=== PATIENT | male | born 1985 | race Caucasian/White ===

== ENCOUNTER 2017-04-17 12:57 | Inpatient (IN) | payer OTHER ==
[2017-04-17 14:36] VITALS: BMI 23.6
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
[2017-04-17] MEDS ORDERED: METHADONE HCL 10 MG TABLET (FOR DETOX USE ONLY) PO ONE ×2 (17:08→23:00)
[2017-04-17] MEDS ORDERED: MAGNESIUM HYDROX 2400MG/30ML ORAL SUSPENSION 30 ML CUP PO PRN (17:08)
[2017-04-17] MEDS ORDERED: guaiFENesin/D-METHORPHAN HB 10 ML UNIT-DOSE CUPS PO PRN (17:08)
[2017-04-17] MEDS ORDERED: P-EPHED 60MG/TRIPROLIDI 2.5MG TABLET PO PRN (17:08)
[2017-04-17] MEDS ORDERED: LOPERAMIDE HCL 2 MG CAPSULE PO PRN (17:08)
[2017-04-17] MEDS ORDERED: MAG HYDROX/AL HYDROX/SIMETH 30 ML UNIT-DOSE CUP PO PRN (17:08)
[2017-04-17] MEDS ORDERED: NICOTINE POLACRILEX 2 MG GUM BUC PRN (17:08)
[2017-04-17] MEDS ORDERED: MENTHOL/PHENOL 1 EACH UD MM PRN (17:08)
[2017-04-17] MEDS ORDERED: IBUPROFEN 400 MG TABLET (FP) PO PRN (17:08)
[2017-04-17] MEDS ORDERED: MAGNESIUM CITRATE 300 ML BOTTLE PO PRN (17:08)
[2017-04-17] MEDS ORDERED: LIDOCAINE VISCOUS 2% ORAL/TOP 20 ML UNIT-DOSE CUP MM PRN (17:10)
[2017-04-17] MEDS ORDERED: METHADONE HCL 10 MG TABLET (FOR DETOX USE ONLY) ONE (19:25)
[2017-04-17] MEDS: AMOX TR/POT CLAV 875MG/125MG TABLETS (FP) PO SCH (19:29)
[2017-04-17] MEDS: diazePAM 5 MG TABLET PO PRN (19:31)
[2017-04-17] MEDS: NICOTINE 14 MG/24 HOURS TOPICAL PATCH TD SCH (19:32)
[2017-04-17] MEDS: THIAMINE HCL 100 MG TABLET (FP) PO SCH (22:38)
[2017-04-17] MEDS: diphenhydrAMINE HCL 50 MG CAPSULE PO PRN (22:39)
[2017-04-18] MEDS: diazePAM 5 MG TABLET PO PRN ×4 (06:00→22:18)
[2017-04-18] MEDS: ACETAMINOPHEN 325 MG TABLET (FP) PO PRN (06:00)
[2017-04-18] MEDS: AMOX TR/POT CLAV 875MG/125MG TABLETS (FP) PO SCH ×2 (08:18→17:16)
[2017-04-18] MEDS ORDERED: METHADONE HCL 10 MG TABLET (FOR DETOX USE ONLY) PO ONE (10:00)
[2017-04-18] MEDS: NICOTINE 14 MG/24 HOURS TOPICAL PATCH TD SCH (10:45)
[2017-04-18] MEDS: PRENATAL VITAMINS W/ FOLIC ACID TABLET (FP) PO SCH (10:45)
--- NOTE | 2017-04-18 10:59 | EKG ---
Test Reason : Blood Pressure : / mmHG Vent. Rate : 079 BPM Atrial Rate : 079 BPM P-R Int : 138 ms QRS Dur : 088 ms QT Int : 418 ms P-R-T Axes : 064 002 026 degrees QTc Int : 479 ms NORMAL SINUS RHYTHM NORMAL ECG BORDERLINE QT INTERVAL NO PREVIOUS ECGS AVAILABLE Confirmed by HINA BAKER, KALYANI ([id number]) on 04/18/2017 10:59:11 AM Referred By: Confirmed By:KALYANI SANTAMARIA MD
--- NOTE | 2017-04-18 13:32 | PN ---
BHS COWS - Scale Resting Pulse: 1= [place] 81-100 Sweatin=Flushed/Facial Moisture Restless Observation: 3= Extraneous Movement Pupil Size: 0= Normal to Room Light Bone or Joint Aches: 2= Severe Diffuse Aches Runny Nose/ Eye Tearin= Nasal Congestion GI Upset > 30mins: 1= Stomach Cramp Tremor Observation of Outstretched Hands: 2= Slight Tremor Visible Yawning Observation: 1= 1-2x During Session Anxiety or Irritability: 2=Irritable/Anxious Goose Flesh Skin: 0=Smooth Skin COWS Score: 15 BHS Progress Note (SOAP) Subjective: Sweating, tremor, chills, anxious, stomach ache Objective: 04/18/17 13:30 Last Vital Signs Temp Pulse Resp BP Pulse Ox 96.1 F L 82 18 100/72 04/18/17 09:21 04/18/17 09:21 04/18/17 09:21 04/18/17 09:21 Admission labs in progress Assessment: 04/18/17 13:30 Withdrawal symptoms Plan: Continue detox
[2017-04-18 14:16] LABS: MCH 27.2 pg (25.7-33.7); MCHC 31.7 g/dl (32.0-35.9); MEAN PLT VOLUME 8.4 fl (7.5-11.1); PLATELET COUNT 275 K/MM3 (134-434); RDW 15.7 % (11.9-15.9); WHITE BLOOD COUNT 12.8 K/mm3 (4.0-10.0)
[2017-04-18 14:42] LABS: URINE APPEARANCE CLEAR; URINE BILIRUBIN NEGATIVE (NEGATIVE); URINE BLOOD NEGATIVE (NEGATIVE); URINE COLOR YELLOW; URINE GLUCOSE (UA) NEGATIVE (NEGATIVE); URINE KETONE TRACE (NEGATIVE); URINE LEUK ESTERASE NEGATIVE (NEGATIVE); URINE NITRITE NEGATIVE (NEGATIVE); URINE PROTEIN NEGATIVE (NEGATIVE); URINE UROBILINOGEN NEGATIVE E.U./dl (0.2-1.0)
[2017-04-18 15:16] LABS: ALBUMIN 3.8 g/dl (3.4-5.0); ALK PHOS 95 U/L (45-117); ANION GAP 8 (8-16); BILIRUBIN,TOTAL 0.5 mg/dL (0.2-1.0); CALCIUM 9.7 mg/dL (8.5-10.1); CO2 32 mmol/L (21-32); COCKROFT - GAULT 107.62; CREATININE 1.1 mg/dL (0.7-1.3); GLUCOSE,RANDOM 83 mg/dL (74-106); SGOT/AST 25 U/L (15-37); SGPT/ALT 34 U/L (12-78); TOT PROT 6.8 g/dl (6.4-8.2)
[2017-04-18] MEDS: THIAMINE HCL 100 MG TABLET (FP) PO SCH (22:18)
[2017-04-18] MEDS: diphenhydrAMINE HCL 50 MG CAPSULE PO PRN (22:18)
[2017-04-19] MEDS: diazePAM 5 MG TABLET PO PRN ×4 (05:26→22:33)
[2017-04-19] MEDS: AMOX TR/POT CLAV 875MG/125MG TABLETS (FP) PO SCH ×2 (07:22→17:16)
[2017-04-19] MEDS ORDERED: METHADONE HCL 5 MG TABLET (FOR DETOX USE ONLY) PO ONE (10:00)
[2017-04-19] MEDS: PRENATAL VITAMINS W/ FOLIC ACID TABLET (FP) PO SCH (10:25)
[2017-04-19] MEDS: NICOTINE 14 MG/24 HOURS TOPICAL PATCH TD SCH (10:25)
--- NOTE | 2017-04-19 11:56 | PN ---
BHS COWS - Scale Resting Pulse: 1= [place] 81-100 Sweatin=Flushed/Facial Moisture Restless Observation: 1= Difficult to Sit Still Pupil Size: 0= Normal to Room Light Bone or Joint Aches: 2= Severe Diffuse Aches Runny Nose/ Eye Tearin= Runny Nose/Eyes GI Upset > 30mins: 2= Nausea/Diarrhea Tremor Observation of Outstretched Hands: 2= Slight Tremor Visible Yawning Observation: 1= 1-2x During Session Anxiety or Irritability: 2=Irritable/Anxious Goose Flesh Skin: 0=Smooth Skin COWS Score: 15 BHS Progress Note (SOAP) Subjective: Anxiety,tremors,sweating,interrupted sleep,restless Objective: 04/19/17 11:55 Vital Signs - 8 hr 04/19/17 04/19/17 06:15 09:16 Temperature 97.6 F 96.8 F L Pulse Rate 81 76 Respiratory 18 18 Rate Blood Pressure 112/71 106/71 Laboratory Last Values WBC 12.8 K/mm3 (4.0-10.0) H 04/18/17 07:12 RBC 5.30 M/mm3 (4.00-5.60) 04/18/17 07:12 Hgb 14.4 GM/dL (11.7-16.9) 04/18/17 07:12 Hct 45.5 % (35.4-49) 04/18/17 07:12 MCV 86.0 fl (80-96) 04/18/17 07:12 MCHC 31.7 g/dl (32.0-35.9) L 04/18/17 07:12 RDW 15.7 % (11.9-15.9) 04/18/17 07:12 Plt Count 275 K/MM3 (134-434) 04/18/17 07:12 MPV 8.4 fl (7.5-11.1) 04/18/17 07:12 Sodium 143 mmol/L (136-145) 04/18/17 07:12 Potassium 4.1 mmol/L (3.5-5.1) 04/18/17 07:12 Chloride 103 mmol/L (98-107) 04/18/17 07:12 Carbon Dioxide 32 mmol/L (21-32) 04/18/17 07:12 Anion Gap 8 (8-16) 04/18/17 07:12 BUN 16 mg/dL (7-18) 04/18/17 07:12 Creatinine 1.1 mg/dL (0.7-1.3) 04/18/17 07:12 Creat Clearance w eGFR > 60 (>60) 04/18/17 07:12 Random Glucose 83 mg/dL (74-106) 04/18/17 07:12 Calcium 9.7 mg/dL (8.5-10.1) 04/18/17 07:12 Total Bilirubin 0.5 mg/dL (0.2-1.0) 04/18/17 07:12 AST 25 U/L (15-37) 04/18/17 07:12 ALT 34 U/L (12-78) 04/18/17 07:12 Alkaline Phosphatase 95 U/L (45-117) 04/18/17 07:12 Total Protein 6.8 g/dl (6.4-8.2) 04/18/17 07:12 Albumin 3.8 g/dl (3.4-5.0) 04/18/17 07:12 Urine Color Yellow 04/18/17 09:10 Urine Appearance Clear 04/18/17 09:10 Urine pH 5.0 (5.0-8.0) 04/18/17 09:10 Ur Specific [place] 1.025 (1.005-1.025) 04/18/17 09:10 Urine Protein Negative (NEGATIVE) 04/18/17 09:10 Urine Glucose (UA) Negative (NEGATIVE) 04/18/17 09:10 Urine Ketones Trace (NEGATIVE) H 04/18/17 09:10 Urine Blood Negative (NEGATIVE) 04/18/17 09:10 Urine Nitrite Negative (NEGATIVE) 04/18/17 09:10 Urine Bilirubin Negative (NEGATIVE) 04/18/17 09:10 Urine Urobilinogen Negative E.U./dl (0.2-1.0) 04/18/17 09:10 Ur Leukocyte Esterase Negative (NEGATIVE) 04/18/17 09:10 RPR Titer Nonreactive (NONREACTIVE) 04/18/17 07:12 labs noted Assessment: 04/19/17 11:56 Withdrawal sx. Plan: Continue detox
[2017-04-19] MEDS: ACETAMINOPHEN 325 MG TABLET (FP) PO PRN (18:38)
[2017-04-19] MEDS: diphenhydrAMINE HCL 50 MG CAPSULE PO PRN (22:33)
[2017-04-19] MEDS: THIAMINE HCL 100 MG TABLET (FP) PO SCH (22:33)
[2017-04-20] MEDS: diazePAM 5 MG TABLET PO PRN ×2 (05:51→14:03)
[2017-04-20] MEDS: AMOX TR/POT CLAV 875MG/125MG TABLETS (FP) PO SCH ×2 (07:13→17:15)
[2017-04-20] MEDS: PRENATAL VITAMINS W/ FOLIC ACID TABLET (FP) PO SCH (09:37)
[2017-04-20] MEDS: NICOTINE 14 MG/24 HOURS TOPICAL PATCH TD SCH (09:39)
[2017-04-20] MEDS ORDERED: METHADONE HCL 5 MG TABLET (FOR DETOX USE ONLY) PO ONE (10:00)
--- NOTE | 2017-04-20 14:57 | PN ---
BHS Progress Note (SOAP) Subjective: Sweating,restless,interrupted sleep Objective: 04/20/17 14:56 Vital Signs - 8 hr 04/20/17 04/20/17 09:36 13:29 Temperature 97.2 F L 97.8 F Pulse Rate 84 81 Respiratory 18 18 Rate Blood Pressure 109/69 108/73 Laboratory Last Values WBC 12.8 K/mm3 (4.0-10.0) H 04/18/17 07:12 RBC 5.30 M/mm3 (4.00-5.60) 04/18/17 07:12 Hgb 14.4 GM/dL (11.7-16.9) 04/18/17 07:12 Hct 45.5 % (35.4-49) 04/18/17 07:12 MCV 86.0 fl (80-96) 04/18/17 07:12 MCHC 31.7 g/dl (32.0-35.9) L 04/18/17 07:12 RDW 15.7 % (11.9-15.9) 04/18/17 07:12 Plt Count 275 K/MM3 (134-434) 04/18/17 07:12 MPV 8.4 fl (7.5-11.1) 04/18/17 07:12 Sodium 143 mmol/L (136-145) 04/18/17 07:12 Potassium 4.1 mmol/L (3.5-5.1) 04/18/17 07:12 Chloride 103 mmol/L (98-107) 04/18/17 07:12 Carbon Dioxide 32 mmol/L (21-32) 04/18/17 07:12 Anion Gap 8 (8-16) 04/18/17 07:12 BUN 16 mg/dL (7-18) 04/18/17 07:12 Creatinine 1.1 mg/dL (0.7-1.3) 04/18/17 07:12 Creat Clearance w eGFR > 60 (>60) 04/18/17 07:12 Random Glucose 83 mg/dL (74-106) 04/18/17 07:12 Calcium 9.7 mg/dL (8.5-10.1) 04/18/17 07:12 Total Bilirubin 0.5 mg/dL (0.2-1.0) 04/18/17 07:12 AST 25 U/L (15-37) 04/18/17 07:12 ALT 34 U/L (12-78) 04/18/17 07:12 Alkaline Phosphatase 95 U/L (45-117) 04/18/17 07:12 Total Protein 6.8 g/dl (6.4-8.2) 04/18/17 07:12 Albumin 3.8 g/dl (3.4-5.0) 04/18/17 07:12 Urine Color Yellow 04/18/17 09:10 Urine Appearance Clear 04/18/17 09:10 Urine pH 5.0 (5.0-8.0) 04/18/17 09:10 Ur Specific [place] 1.025 (1.005-1.025) 04/18/17 09:10 Urine Protein Negative (NEGATIVE) 04/18/17 09:10 Urine Glucose (UA) Negative (NEGATIVE) 04/18/17 09:10 Urine Ketones Trace (NEGATIVE) H 04/18/17 09:10 Urine Blood Negative (NEGATIVE) 04/18/17 09:10 Urine Nitrite Negative (NEGATIVE) 04/18/17 09:10 Urine Bilirubin Negative (NEGATIVE) 04/18/17 09:10 Urine Urobilinogen Negative E.U./dl (0.2-1.0) 04/18/17 09:10 Ur Leukocyte Esterase Negative (NEGATIVE) 04/18/17 09:10 RPR Titer Nonreactive (NONREACTIVE) 04/18/17 07:12 labs noted Assessment: 04/20/17 14:56 Withdrawal sx. Plan: Continue detox
[2017-04-20] MEDS: diphenhydrAMINE HCL 50 MG CAPSULE PO PRN (22:23)
[2017-04-20] MEDS: THIAMINE HCL 100 MG TABLET (FP) PO SCH (22:23)
[2017-04-20] MEDS: ACETAMINOPHEN 325 MG TABLET (FP) PO PRN (23:21)
[2017-04-21] MEDS: AMOX TR/POT CLAV 875MG/125MG TABLETS (FP) PO SCH ×2 (07:56→17:39)
[2017-04-21] MEDS ORDERED: METHADONE HCL 10 MG TABLET (FOR DETOX USE ONLY) PO ONE (10:00)
[2017-04-21] MEDS: PRENATAL VITAMINS W/ FOLIC ACID TABLET (FP) PO SCH (10:33)
[2017-04-21] MEDS: hydrOXYzine PAMOATE 50 MG CAPSULE (FP) PO PRN ×2 (10:33→15:12)
[2017-04-21] MEDS: NICOTINE 14 MG/24 HOURS TOPICAL PATCH TD SCH (10:34)
--- NOTE | 2017-04-21 11:18 | PN ---
S Progress Note (SOAP) Subjective: Sweating,interrupted sleep,restless, Objective: 04/21/17 11:17 Vital Signs - 8 hr 04/21/17 04/21/17 04/21/17 03:55 06:58 09:17 Temperature 97.5 F L Pulse Rate 90 Respiratory 18 18 20 Rate Blood Pressure 115/62 Laboratory Last Values WBC 12.8 K/mm3 (4.0-10.0) H 04/18/17 07:12 RBC 5.30 M/mm3 (4.00-5.60) 04/18/17 07:12 Hgb 14.4 GM/dL (11.7-16.9) 04/18/17 07:12 Hct 45.5 % (35.4-49) 04/18/17 07:12 MCV 86.0 fl (80-96) 04/18/17 07:12 MCHC 31.7 g/dl (32.0-35.9) L 04/18/17 07:12 RDW 15.7 % (11.9-15.9) 04/18/17 07:12 Plt Count 275 K/MM3 (134-434) 04/18/17 07:12 MPV 8.4 fl (7.5-11.1) 04/18/17 07:12 Sodium 143 mmol/L (136-145) 04/18/17 07:12 Potassium 4.1 mmol/L (3.5-5.1) 04/18/17 07:12 Chloride 103 mmol/L (98-107) 04/18/17 07:12 Carbon Dioxide 32 mmol/L (21-32) 04/18/17 07:12 Anion Gap 8 (8-16) 04/18/17 07:12 BUN 16 mg/dL (7-18) 04/18/17 07:12 Creatinine 1.1 mg/dL (0.7-1.3) 04/18/17 07:12 Creat Clearance w eGFR > 60 (>60) 04/18/17 07:12 Random Glucose 83 mg/dL (74-106) 04/18/17 07:12 Calcium 9.7 mg/dL (8.5-10.1) 04/18/17 07:12 Total Bilirubin 0.5 mg/dL (0.2-1.0) 04/18/17 07:12 AST 25 U/L (15-37) 04/18/17 07:12 ALT 34 U/L (12-78) 04/18/17 07:12 Alkaline Phosphatase 95 U/L (45-117) 04/18/17 07:12 Total Protein 6.8 g/dl (6.4-8.2) 04/18/17 07:12 Albumin 3.8 g/dl (3.4-5.0) 04/18/17 07:12 Urine Color Yellow 04/18/17 09:10 Urine Appearance Clear 04/18/17 09:10 Urine pH 5.0 (5.0-8.0) 04/18/17 09:10 Ur Specific [place] 1.025 (1.005-1.025) 04/18/17 09:10 Urine Protein Negative (NEGATIVE) 04/18/17 09:10 Urine Glucose (UA) Negative (NEGATIVE) 04/18/17 09:10 Urine Ketones Trace (NEGATIVE) H 04/18/17 09:10 Urine Blood Negative (NEGATIVE) 04/18/17 09:10 Urine Nitrite Negative (NEGATIVE) 04/18/17 09:10 Urine Bilirubin Negative (NEGATIVE) 04/18/17 09:10 Urine Urobilinogen Negative E.U./dl (0.2-1.0) 04/18/17 09:10 Ur Leukocyte Esterase Negative (NEGATIVE) 04/18/17 09:10 RPR Titer Nonreactive (NONREACTIVE) 04/18/17 07:12 labs noted Assessment: 04/21/17 11:17 Withdrawal sx. Plan: Continue detox
[2017-04-21] MEDS ORDERED: IBUPROFEN 400 MG TABLET (FP) PO PRN (11:25)
[2017-04-21] MEDS: THIAMINE HCL 100 MG TABLET (FP) PO SCH (22:40)
[2017-04-22] MEDS ORDERED: METHADONE HCL 5 MG TABLET (FOR DETOX USE ONLY) PO ONE (06:00)
[2017-04-22 06:41] VITALS: BP 110/65; PULSE 83; TEMP 97.7
[2017-04-22] MEDS: AMOX TR/POT CLAV 875MG/125MG TABLETS (FP) PO SCH (07:18)
--- NOTE | 2017-04-22 11:53 | DS ---
[facility] Detox Discharge Summary Admission Date: 04/17/17 Discharge Date: 04/22/17 - History Present History: Cannabis Dependence, Cocaine Dependence, Opioid Dependence Additional Comments: ADVISED PATIENT TO FOLLOW-UP WITH [facility] FOR GENERAL MEDICAL ASSESSMENT AND WITH DENTIST FOR DENTAL ABSCESS AFTER DISCHARGE FROM DETOX. - Physical Exam Results Vital Signs: Vital Signs Temperature 97.7 F 04/22/17 06:41 Pulse Rate 83 04/22/17 06:41 Respiratory Rate 18 04/22/17 06:41 Blood Pressure 110/65 04/22/17 06:41 O2 Sat by Pulse Oximetry (%) Pertinent Admission Physical Exam Findings: WITHDRAWAL SYMPTOMS. Laboratory Tests 04/18/17 04/18/17 04/18/17 07:12 07:12 07:12 WBC 12.8 H RBC 5.30 Hgb 14.4 Hct 45.5 MCV 86.0 MCHC 31.7 L RDW 15.7 Plt Count 275 MPV 8.4 Sodium 143 Potassium 4.1 Chloride 103 Carbon Dioxide 32 Anion Gap 8 BUN 16 Creatinine 1.1 Creat Clearance w eGFR > 60 Random Glucose 83 Calcium 9.7 Total Bilirubin 0.5 AST 25 ALT 34 Alkaline Phosphatase 95 Total Protein 6.8 Albumin 3.8 Urine Color Urine Appearance Urine pH Ur Specific [place] Urine Protein Urine Glucose (UA) Urine Ketones Urine Blood Urine Nitrite Urine Bilirubin Urine Urobilinogen Ur Leukocyte Esterase RPR Titer Nonreactive 04/18/17 09:10 WBC RBC Hgb Hct MCV MCHC RDW Plt Count MPV Sodium Potassium Chloride Carbon Dioxide Anion Gap BUN Creatinine Creat Clearance w eGFR Random Glucose Calcium Total Bilirubin AST ALT Alkaline Phosphatase Total Protein Albumin Urine Color Yellow Urine Appearance Clear Urine pH 5.0 Ur Specific [place] 1.025 Urine Protein Negative Urine Glucose (UA) Negative Urine Ketones Trace H Urine Blood Negative Urine Nitrite Negative Urine Bilirubin Negative Urine Urobilinogen Negative Ur Leukocyte Esterase Negative RPR Titer LABS NOTED. - Treatment Hospital Course: Detox Protocol Followed, Detoxed Safely, Responded well, Discharged Condition Good Patient has Accepted a Rehab Referral to: PATIENT TO GO HOME NOW; WILL PURSUE REHAB AT A LATER DATE. - Medication Discharge Medications: Ambulatory Orders Amox-Tr/K Cl [Augmentin - 875Mg Tablet] 1 tab PO BID 04/17/17 - Diagnosis (1) Cannabis dependence, uncomplicated Status: Acute (2) Cocaine dependence, uncomplicated Status: Acute (3) Dental abscess Status: Acute (4) Opioid dependence with withdrawal Status: Acute - AMA Did Patient Leave Against Medical Advice: No
== END 2017-04-22 09:47 | disposition home or self-care (01) | DRG 773 ==
LOC: YASAS 12:57 → Y3N 17:23
PROVIDERS: ADMIT Internal Medicine; ATTEND Internal Medicine
PROC: HZ2ZZZZ Detoxification Services for Substance Abuse Treatment (ICD-10-PCS; principal; 2017-04-22)
DX: F11.23 Opioid dependence with withdrawal (principal); F14.20 Cocaine dependence, uncomplicated; F12.20 Cannabis dependence, uncomplicated; F17.210 Nicotine dependence, cigarettes, uncomplicated; K04.7 Periapical abscess without sinus
CPT/HCPCS: 36415; 80053; 81003; 85027; 86593; 93005; 93010